=== PATIENT | female | born 1995 | race African-American/Black ===

== ENCOUNTER 2022-05-16 08:00 | Outpatient (CLI) | payer OTHER ==
[2022-05-16 23:32] LABS: CHLAMYDIA TRACHOMATIS DNA NEGATIVE (NEGATIVE); NEISSERIA GONORRHOEAE DNA NEGATIVE (NEGATIVE)
[2022-05-17 00:17] LABS: BACTERIAL VAGINOSIS DNA NEGATIVE (NEGATIVE)
[2022-05-17 00:19] LABS: CANDIDA GLABRATA DNA INDETERMINATE ERROR (NEGATIVE); CANDIDA GROUP DNA INDETERMINATE ERROR (NEGATIVE); CANDIDA KRUSEI DNA INDETERMINATE ERROR (NEGATIVE); TRICHOMONAS VAGINALIS DNA INDETERMINATE ERROR (NEGATIVE)
== END 2022-05-16 23:59 | disposition home or self-care (01) ==
LOC: LAB.N 08:00
PROVIDERS: ATTEND Family Medicine
DX: N89.8 Other specified noninflammatory disorders of vagina (principal)
CPT/HCPCS: 81514; 87491; 87591; 87661

== ENCOUNTER 2022-07-10 09:06 | Outpatient (CLI) | payer OTHER | END 2022-07-10 09:07 | disposition critical access hospital (66) | LOC: EMS 09:06 | DX: R10.32 Left lower quadrant pain (principal); R11.0 Nausea; R42 Dizziness and giddiness | CPT/HCPCS: A0425; A0429 ==

== ENCOUNTER 2022-07-10 09:46 | Emergency (ER) | payer OTHER ==
[2022-07-10 10:20] LABS: BASOPHILS % (AUTO) 0.5 %; EOSINOPHILS # (AUTO) 0.2 10^3/uL (0.0-0.7); EOSINOPHILS % (AUTO) 2.1 %; HCT - HEMATOCRIT 40.6 % (37.0-47.0); HGB - HEMOGLOBIN 12.5 g/dL (12.0-16.0); LYMPHOCYTES # (AUTO) 2.6 10^3/uL (1.5-3.5); LYMPHOCYTES % (AUTO) 31.6 %; MEAN CORPUSCULAR HEMOGLOBIN 26.7 pg (27.0-31.0); MEAN CORPUSCULAR HGB CONC 30.8 g/dL (32.0-36.0); MEAN CORPUSCULAR VOLUME 86.8 fL (81.0-99.0); MEAN PLATELET VOLUME 10.2 fL (7.9-10.8); MONOCYTES # (AUTO) 0.6 10^3/uL (0.0-1.0); MONOCYTES % (AUTO) 7.3 %; NEUTROPHILS # (AUTO) 4.7 10^3/uL (1.5-6.6); NEUTROPHILS % (AUTO) 58.3 %; PLT - PLATELET COUNT 246 10^3/uL (130-450); RED BLOOD COUNT 4.68 10^6/uL (4.20-5.40); RED CELL DISTRIBUTION WIDTH 15.3 % (12.0-15.0); WHITE BLOOD COUNT 8.1 x10^3/uL (4.8-10.8)
[2022-07-10 10:21] LABS: BILIRUBIN,URINE NEGATIVE (NEGATIVE); GLUCOSE, URINE (UA) NEGATIVE (NEGATIVE); KETONES,URINE (UA) NEGATIVE (NEGATIVE); LEUKOCYTE ESTERASE, URINE SMALL (NEGATIVE); NITRITE,URINE NEGATIVE (NEGATIVE); OCCULT BLOOD,URINE NEGATIVE (NEGATIVE); PROTEIN,URINE NEGATIVE (NEGATIVE); UROBILINOGEN,URINE 0.2 (NORMAL) E.U./dL (NORMAL)
[2022-07-10 10:23] LABS: CLARITY,URINE HAZY (CLEAR)
[2022-07-10 10:24] LABS: HCG UR QUAL NEGATIVE
[2022-07-10 10:29] LABS: BACTERIA,URINE Many /HPF (None Seen); RBC,URINE 0-5 /HPF (0-5); SQUAMOUS EPITHELIAL CELL,UR MOD Squamous (<= Few); WBC,URINE 0-3 /HPF (0-5)
[2022-07-10 10:29] LABS: ALBUMIN/GLOBULIN RATIO 1.1 (1.0-2.2); BILIRUBIN,TOTAL 0.5 mg/dL (0.2-1.0); CREATININE 0.6 mg/dL (0.4-1.0); POTASSIUM 4.1 mmol/L (3.5-5.0); TOTAL PROTEIN 7.7 g/dL (6.7-8.2)
[2022-07-10] MEDS: SODIUM CHLORIDE 0.9% 1,000 ML IV STA (11:02)
[2022-07-10] MEDS ORDERED: iohexoL-300 100 ML VIAL ONE (11:08)
[2022-07-10] MEDS: iohexoL-300 100 ML VIAL IVP ONE (12:07)
--- NOTE | 2022-07-10 12:10 | CT Report ---
PROCEDURE: ABDOMEN/PELVIS W INDICATIONS: lower abd pain CONTRAST: 100ml OMnipaque 300 TECHNIQUE: After the administration of IV contrast, 5 mm thick sections acquired from the diaphragms to the symp hysis. 5 mm thick coronal and sagittal reformats were acquired. For radiation dose reduction, the f ollowing was used: automated exposure control, adjustment of mA and/or kV according to patient size. COMPARISON: None. FINDINGS: Image quality: Excellent. ABDOMEN: Lung bases: Lung bases are clear. Heart size is normal. Solid organs: Liver and spleen are normal in size and enhancement. Gallbladder is surgically absent . Biliary system is non dilated. Pancreas enhances normally. No adrenal nodules. Kidneys demonstr ate normal size and enhancement, without hydronephrosis. Peritoneum and bowel: Appendix is normal. There is a large amount stool in colon. Bowel loops demons trate normal wall thickness and caliber. No free fluid or air. Nodes and vessels: No retroperitoneal or mesenteric adenopathy by size criteria. Aorta and inferior vena cava are normal in size. Miscellaneous: No ventral hernias. PELVIS: Genitourinary: Uterus and ovaries are grossly normal. No pathological free fluid in the adnexa or cu l-de-sac. Bladder wall thickness is normal. Miscellaneous: No inguinal hernias or adenopathy. Bones: No suspicious bony lesions. No vertebral body compression fractures. 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 IMPRESSION: 1. Normal appendix. 2. A large amount of stool in colon. Reviewed by: Avni Ornelas MD on 07/10/2022 12:09 PM PST Approved by: Avni Ornelas MD on 07/10/2022 12:09 PM PST Station ID: [id number]
--- NOTE | 2022-07-10 12:26 | ED Physician Documentation ---
PD HPI ABD PAIN - Stated complaint Stated Complaint: L LOWER QUAD PX - Chief complaint Chief Complaint: Abd Pain - History obtained from History obtained from: Patient - Additional information Additional information: Patient is a 26-year-old female presenting for evaluation of lower abdominal pain that is been present for 3 days. She describes it as achy feeling and worse after eating.She reports being concern for as her period is usually very regular and she has not yet started today. She did take a home test which was negative. She does have a history of an ectopic pregna ncy.She denies fever, chest pain, difficulty breathing, nausea or vomiting.She denies vaginal bleeding, discharge or concerns for sexually transmitted infections.She also reports having small bowel movements for the past 2 days. Review of Systems Constitutional: denies: Fever Nose: denies: Congestion Cardiac: denies: Chest pain / pressure Respiratory: denies: Dyspnea GI: reports: Abdominal Pain. denies: Nausea, Vomiting, Diarrhea : denies: Dysuria, Discharge, Vaginal bleeding Neurologic: denies: Headache PD PAST MEDICAL HISTORY - Allergies Allergies/Adverse Reactions: Allergies Allergy/AdvReac Type Severity Reaction Status Date / Time No Known Drug Allergies Allergy Verified 07/10/22 09:56 PD ED PE NORMAL - General General: Alert and oriented X 3, No acute distress, Well developed/nourished - HEENT HEENT: Atraumatic - Neck Neck: Supple, no meningeal sign - Cardiac Cardiac: RRR, No murmur - Respiratory Respiratory: No respiratory distress, Clear bilaterally - Abdomen Abdomen: Normal bowel sounds, Soft, Non distended, Other (Mild right and left lower quadrant tenderness to palpation; No rebound, no guarding) - Derm Derm: Warm and dry - Neuro Neuro: Normal speech Results - Vitals Vitals: Vital Signs - 24 hr 07/10/22 07/10/22 07/10/22 09:57 10:02 12:02 Temperature 37.0 C 37.0 C Heart Rate 65 65 70 Respiratory 20 20 19 Rate Blood Pressure 118/60 118/60 100/55 L O2 Saturation 99 99 98 07/10/22 12:53 Temperature Heart Rate 65 Respiratory 18 Rate Blood Pressure 120/75 O2 Saturation 99 Oxygen O2 Source Room air - Labs Labs: Laboratory Tests 07/10/22 07/10/22 07/10/22 10:10 10:11 10:11 WBC 8.1 RBC 4.68 Hgb 12.5 Hct 40.6 MCV 86.8 MCH 26.7 L MCHC 30.8 L RDW 15.3 H Plt Count 246 MPV 10.2 Neut # (Auto) 4.7 Lymph # (Auto) 2.6 Turner # (Auto) 0.6 Eos # (Auto) 0.2 Baso # (Auto) 0.0 Absolute Nucleated RBC 0.00 Nucleated RBC % 0.0 Sodium 138 Potassium 4.1 Chloride 104 Carbon Dioxide 26 Anion Gap 8.0 BUN 16 Creatinine 0.6 Estimated GFR (MDRD) 148 Glucose 87 Calcium 9.0 Total Bilirubin 0.5 AST 19 ALT 15 Alkaline Phosphatase 78 Total Protein 7.7 Albumin 4.0 Globulin 3.7 Albumin/Globulin Ratio 1.1 Lipase 33 HCG, Quant Urine Color YELLOW Urine Clarity HAZY Urine pH 6.0 Ur Specific Earp >=1.030 H Urine Protein NEGATIVE Urine Glucose (UA) NEGATIVE Urine Ketones NEGATIVE Urine Occult Blood NEGATIVE Urine Nitrite NEGATIVE Urine Bilirubin NEGATIVE Urine Urobilinogen 0.2 (NORMAL) Ur Leukocyte Esterase SMALL H Urine RBC 0-5 Urine WBC 0-3 Ur Squamous Epith Cells MOD Squamous H Urine Bacteria Many H Ur Microscopic Review INDICATED Urine Culture Comments NOT INDICATED Urine HCG, Qual NEGATIVE 07/10/22 10:11 WBC RBC Hgb Hct MCV MCH MCHC RDW Plt Count MPV Neut # (Auto) Lymph # (Auto) Turner # (Auto) Eos # (Auto) Baso # (Auto) Absolute Nucleated RBC Nucleated RBC % Sodium Potassium Chloride Carbon Dioxide Anion Gap BUN Creatinine Estimated GFR (MDRD) Glucose Calcium Total Bilirubin AST ALT Alkaline Phosphatase Total Protein Albumin Globulin Albumin/Globulin Ratio Lipase HCG, Quant 0.79 Urine Color Urine Clarity Urine pH Ur Specific Earp Urine Protein Urine Glucose (UA) Urine Ketones Urine Occult Blood Urine Nitrite Urine Bilirubin Urine Urobilinogen Ur Leukocyte Esterase Urine RBC Urine WBC Ur Squamous Epith Cells Urine Bacteria Ur Microscopic Review Urine Culture Comments Urine HCG, Qual PD Medical Decision Making - ED course Complexity details: reviewed results, re-evaluated patient, d/w patient ED course: Patient is presenting for evaluation of lower abdominal pain. Her vital signs are reassuring. She has mild tenderness on exam but overall abdominal exam is benign.Patient's exam does not suggest ovarian torsion.Her labs are reassuring and she is not . A CT scan demonstrates a normal-appearing Appendix but she does have a fair amount of stool burden. Patient reports feeling this way in the past when she has had some constipation.Patient reports having MiraLAX at home but has not been using it. Recommend trial of MiraLAX. Patient also counseled on strict return precautions for any worsening symptoms. Departure - Departure Disposition: 01 Home, Self Care Clinical Impression: Lower abdominal pain, Constipation Condition: Stable Instructions: ED Abdominal Pain Female Non-Specific Abdominal Pain, ED Constipation Comments: Your labs are reassuring with no significant abnormalities. Your test both urine and blood is negative. Your CT scan shows a large amount of stool in your colon. I would recommend taking MiraLAX daily. If you have any worsening symptoms please consider reevaluation. Discharge Date/Time: 07/10/22 12:53
[2022-07-10] MEDS: KETOROLAC 30 MG/ML VIAL IVP STA (12:51)
[2022-07-10 12:54] VITALS: BP 120/75
== END 2022-07-10 12:53 | disposition home or self-care (01) ==
LOC: EDUNIT# → ED 09:46
DX: K59.00 Constipation, unspecified (principal)
CPT/HCPCS: 36415; 74177; 80053; 81001; 81025; 83690; 84702; 85025; 96361; 96374; 99282; 99284; Q9967; 81003; 87086